=== PATIENT | female | born 1975 | race American Indian/Alaskan Native ===

== ENCOUNTER 2016-10-19 10:59 | Emergency (ER) | payer SELFPAY ==
[2016-10-19 11:09] VITALS: BP 108/74; PULSE 97; RESP 18; TEMP 99.3; O2SAT 98; BMI 22.9
--- NOTE | 2016-10-19 11:12 | ED PDOC ---
Arrival/HPI - General Chief Complaint: Lower Extremity Problem/Injury Time Seen by Provider: 10/19/16 11:11 Historian: Patient - History of Present Illness Narrative History of Present Illness (Text): 10/19/16 11:11 40yo female present with complaint of left foot pain since yesterday. States pain became worse throbbing while sleeping. Pain is localized to her plantar foot and usually with ambulation. Denies trauma, calf pain, LE edema, any other complaint. did not take any pain medication. Past Medical History - Provider Review Nursing Documentation Reviewed: Yes - Psychiatric Hx Substance Use: No - Surgical History Hx Orthopedic Surgery: Yes (Left arm) Family/Social History - Physician Review Nursing Documentation Reviewed: Yes Family/Social History: Unknown Family HX Smoking Status: Never Smoked Hx Alcohol Use: No Hx Substance Use: No Allergies/Home Meds Allergies/Adverse Reactions: Allergies No Known Allergies Allergy (Verified 10/19/16 11:09) Review of Systems - Physician Review All systems were reviewed & negative as marked: Yes - Review of Systems Constitutional: Normal Eyes: Normal ENT: Normal Respiratory: Normal Cardiovascular: Normal Gastrointestinal: Normal Genitourinary Female: Normal Musculoskeletal: Arthralgias (LEft foot) Skin: Normal Neurological: Normal Endocrine: Normal Hemo/Lymphatic: Normal Psychiatric: Normal Physical Exam Vital Signs Reviewed: Yes Vital Signs Temp Pulse Resp BP Pulse Ox 10/19/16 11:06 99.3 F 97 H 18 108/74 98 Temperature: Afebrile Blood Pressure: Normal Pulse: Regular Respiratory Rate: Normal Appearance: Positive for: Well-Appearing, Non-Toxic, Comfortable Pain Distress: None Mental Status: Positive for: Alert and Oriented X 3 - Systems Exam Head: Present: Atraumatic, Normocephalic Pupils: Present: PERRL Extroacular Muscles: Present: EOMI Conjunctiva: Present: Normal Mouth: Present: Moist Mucous Membranes Neck: Present: Normal Range of Motion Respiratory/Chest: Present: Clear to Auscultation, Good Air Exchange. No: Respiratory Distress, Accessory Muscle Use Cardiovascular: Present: Regular Rate and Rhythm, Normal S1, S2. No: Murmurs Abdomen: Present: Normal Bowel Sounds. No: Tenderness, Distention, Peritoneal Signs Back: Present: Normal Inspection Upper Extremity: Present: Normal Inspection. No: Cyanosis, Edema Lower Extremity: Present: Normal Inspection, NORMAL PULSES, Normal ROM, Neurovascularly Intact. No: Edema, CALF TENDERNESS, Cyanosis, Dawna's Sign, Tenderness, Swelling, Erythema, Deformity, Temperature Abnormalties Neurological: Present: GCS=15, CN II-XII Intact, Speech Normal Skin: Present: Warm, Dry, Normal Color. No: Rashes Psychiatric: Present: Alert, Oriented x 3, Normal Insight, Normal Concentration Medical Decision Making ED Course and Treatment: 10/19/16 15:34 Left foot xray - No acute finding Result was DW the pt. Rx of Ibuprofen given. Referred to orthopedist. TRT ED for any new or worsening symptoms. - RAD Interpretation Radiology Orders: 10/19/16 11:11 FOOT LEFT 3 VIEWS ROUTINE [RAD] Stat - Medication Orders Current Medication Orders: Discontinued Medications Ibuprofen (Motrin Tab) 600 mg PO STAT STA Stop: 10/19/16 11:19 Last Admin: 10/19/16 12:32 Dose: 600 mg Disposition/Present on Arrival - Present on Arrival Any Indicators Present on Arrival: No History of DVT/PE: No History of Uncontrolled Diabetes: No Urinary Catheter: No History of Decub. Ulcer: No History Surgical Site Infection Following: None - Disposition Have Diagnosis and Disposition been Completed?: Yes Diagnosis: Foot pain Disposition: HOME/ ROUTINE Disposition Time: 11:35 Patient Plan: Discharge Condition: STABLE Discharge Instructions (ExitCare): Arthralgia (ED) Additional Instructions: Follow up with your Doctor/Instructor Flying Return to ED for any new or worsening symptoms Prescriptions: Ibuprofen [Motrin Tab] 600 mg PO Q6 #30 tab Referrals: Alphonso Pearce DPM [Staff Provider] - Follow up with primary
--- NOTE | 2016-10-19 11:53 | RAD ---
PROCEDURE: Left Foot Radiographs. HISTORY: foot pain s/p trauma COMPARISON: None. FINDINGS: BONES: Normal. No fracture. JOINTS: Normal. SOFT TISSUES: Normal. OTHER FINDINGS: None. IMPRESSION: Normal left foot radiographs.
== END 2016-10-19 12:32 | disposition home or self-care (01) ==
LOC: ED 10:59
DX: M79.672 Pain in left foot (principal)

== ENCOUNTER 2018-05-27 20:25 | Emergency (ER) | payer BC ==
--- NOTE | 2018-05-27 20:45 | ED PDOC ---
Arrival/HPI - General Historian: Patient - History of Present Illness Narrative History of Present Illness (Text): 05/27/18 20:46 42F presents to the ED with a 2 day hx of generalized body aches, worse at night, subjective fevers and night sweats. She has been taking Ibuprofen and Excedrin intermittently for pain relief which has helped. Pt has two children who are sick at home with the flu, arts therapist rx them both tamiflu. ROS Pos+ arthralgia, myalgia, fevers, chills, night sweats Neg- meningeal signs, headache, viasion changes, neck stiffness, AMS, cough, sob, nausea, vomiting, cp, Time/Duration: < week (2 days) Symptom Onset: Gradual Symptom Course: Worsening Quality: Aching <Rajesh Callahan - Last Filed: 05/27/18 22:15> <Marc Lyles - Last Filed: 05/27/18 22:47> - General Chief Complaint: Flu-like Symptoms Time Seen by Provider: 05/27/18 20:37 Past Medical History - Provider Review Nursing Documentation Reviewed: Yes - Psychiatric Hx Substance Use: No - Surgical History Hx Orthopedic Surgery: Yes (Left arm) - Anesthesia Hx Anesthesia: Yes Hx Anesthesia Reactions: No Hx Malignant Hyperthermia: No <Rajesh Callahan - Last Filed: 05/27/18 22:15> Family/Social History - Physician Review Nursing Documentation Reviewed: Yes Family/Social History: Unknown Family HX Smoking Status: Never Smoked Hx Alcohol Use: No Hx Substance Use: No <Rajesh Callahan - Last Filed: 05/27/18 22:15> Allergies/Home Meds <Rajesh Callahan - Last Filed: 05/27/18 22:15> <Marc Lyles - Last Filed: 05/27/18 22:47> Allergies/Adverse Reactions: Allergies No Known Allergies Allergy (Verified 10/19/16 11:09) Review of Systems - Physician Review All systems were reviewed & negative as marked: Yes - Review of Systems Constitutional: Fevers, Night Sweats Eyes: absent: Vision Changes, Photophobia ENT: absent: Sinus Congestion Respiratory: absent: SOB, Cough Cardiovascular: absent: Chest Pain Gastrointestinal: absent: Abdominal Pain, Diarrhea, Nausea, Vomiting Genitourinary Female: absent: Dysuria Musculoskeletal: Arthralgias, Myalgias Skin: absent: Rash, Abscess Neurological: absent: Headache, Focal Weakness, Speech Changes Psychiatric: absent: Anxiety <Rajesh Callahan - Last Filed: 05/27/18 22:15> Physical Exam Vital Signs Temp Pulse Resp BP Pulse Ox 05/27/18 20:37 99.0 F 89 18 110/74 100 Temperature: Afebrile Blood Pressure: Normal Pulse: Regular Respiratory Rate: Normal Appearance: Positive for: Well-Appearing, Non-Toxic Pain Distress: None Mental Status: Positive for: Alert and Oriented X 3 - Systems Exam Head: Present: Atraumatic, Normocephalic Pupils: Present: PERRL Extroacular Muscles: Present: EOMI. No: Gaze Palsy Mouth: Present: Moist Mucous Membranes Pharnyx: No: ERYTHEMA, EXUDATE Neck: Present: Normal Range of Motion. No: Meningeal Signs Respiratory/Chest: Present: Clear to Auscultation. No: Wheezes, Rales Cardiovascular: Present: Regular Rate and Rhythm, Normal S1, S2. No: Murmurs Abdomen: No: Tenderness, Distention Upper Extremity: Present: Normal Inspection Neurological: Present: GCS=15, CN II-XII Intact Skin: Present: Warm, Dry, Normal Color. No: Diaphoretic Psychiatric: Present: Alert, Oriented x 3, Normal Concentration <Rajesh Callahan - Last Filed: 05/27/18 22:15> Vital Signs Temp Pulse Resp BP Pulse Ox 05/27/18 21:49 98.4 F 86 18 104/65 100 05/27/18 20:37 99.0 F 89 18 110/74 100 <Marc Lyles - Last Filed: 05/27/18 22:47> Medical Decision Making ED Course and Treatment: 05/27/18 21:19 f/u rapid flu 05/27/18 22:15 Neg rapid flu however low sensitivity clinical flu like symptoms d/c home with Tamiflu 75mg BID for 5 days <Rajesh Callahan - Last Filed: 05/27/18 22:15> - Lab Interpretations Lab Results: Lab Results 05/27/18 21:03: Influenza Typ A,B (EIA) Negative for flu a/b <Marc Lyles - Last Filed: 05/27/18 22:47> - PA / SPECIAL EDUCATION MATH TEACHER / Resident Statement MD/DO has examined the patient and agrees with the treatment plan. (42 yr old F p/w flu like symptoms. 2 children w/ +flu. VS unremarkable. clinical exam unremarkable: no meningeal signs. No tenderness. No sinus pressure or pain. Will rx w/ tamiflu for home even though negative flu swab given low sensitivty, x2 children at home w/+flu and flu like symptoms. Pt agreeable to plan.) <Marc Lyles - Last Filed: 05/27/18 22:47> Disposition/Present on Arrival - Present on Arrival Any Indicators Present on Arrival: No History of DVT/PE: No History of Uncontrolled Diabetes: No Urinary Catheter: No History of Decub. Ulcer: No History Surgical Site Infection Following: None - Disposition Have Diagnosis and Disposition been Completed?: Yes Disposition Time: 22:17 <Rajesh Callahan - Last Filed: 05/27/18 22:15> <Marc Lyles - Last Filed: 05/27/18 22:47> - Disposition Diagnosis: Influenza Disposition: HOME/ ROUTINE Condition: GOOD Discharge Instructions (ExitCare): Flu, Adult (DC) Additional Instructions: KATHERIN ENNIS, thank you for letting us take care of you today. Your provider was Marc Lyles and you were treated for FLU. The emergency medical care you received today was directed at your acute symptoms. If you were prescribed any medication, please fill it and take as directed. It may take several days for your symptoms to resolve. Return to the Emergency Department if your symptoms worsen, do not improve, or if you have any other problems. Please contact your doctor or call one of the physicians/clinics you have been referred to that are listed on the Patient Visit Information form that is included in your discharge packet. Bring any paperwork you were given at discharge with you along with any medications you are taking to your follow up visit. Our treatment cannot replace ongoing medical care by a primary care provider outside of the emergency department. Thank you for allowing the [facility] team to be part of your care today. If you had an X-Ray or CT scan: A Radiologist will review the ED reading if any change in treatment is needed we will contact you. If you had a blood, urine, or wound culture: It will take several days for the results, if any change in treatment is needed we will contact you. If you had an STI test: It will take 48 hours for the results. Please call after 1 week if you have not heard back. Prescriptions: Oseltamivir Cap [Tamiflu] 75 mg PO BID #10 cap Forms: [employer] ([place])
[2018-05-27 21:03] VITALS: RESP 18; O2SAT 100; BMI 26.1
[2018-05-27 22:02] VITALS: BP 104/65; PULSE 86; TEMP 98.4
== END 2018-05-27 22:30 | disposition home or self-care (01) ==
LOC: ED 20:25
DX: J11.1 Influenza due to unidentified influenza virus with other respiratory manifestations (principal)